=== PATIENT | male | born 1940 ===

== ENCOUNTER → 2016-10-21 | Outpatient (CLI) | payer OTHER ==
[2016-10-21 10:08] LABS: BUN/CREATININE RATIO 20 (0-10)
== END ==
LOC: LAB 08:24
PROVIDERS: Family Medicine
DX: R73.9 Hyperglycemia, unspecified (principal)
CPT/HCPCS: 36415; 80048; 83036

== ENCOUNTER → 2016-10-31 | Outpatient (CLI) | payer OTHER | LOC: LAB 10:50 | DX: E11.9 Type 2 diabetes mellitus without complications (principal) | CPT/HCPCS: 36415; 82043; 82570 ==

== ENCOUNTER → 2016-12-10 | Outpatient (CLI) | payer OTHER ==
[2016-12-10 08:22] LABS: BUN/CREATININE RATIO 15 (0-10)
== END ==
LOC: LAB 07:33
PROVIDERS: Family Medicine
DX: E11.9 Type 2 diabetes mellitus without complications (principal); E78.5 Hyperlipidemia, unspecified
CPT/HCPCS: 36415; 80053; 80061; 83036; 84550